=== PATIENT | male | born 1955 | race Two or more races ===

== ENCOUNTER 2016-09-21 07:19 | Emergency (ER) | payer MEDICARE ==
[~2016-09-21] VITALS: Ht 170.2 cm; Wt 73.0 kg
[~2016-09-21 07:19] MED LIST: ACET250T3 PO; CARB200T4 PO; LEVE500T22 PO
[2016-09-21 09:24] VITALS: BP 102/68
[2016-09-21] MEDS ORDERED: KETOROLAC TROMETH 60MG/2ML VIAL IM ONE (09:45)
== END 2016-09-21 14:53 | disposition home or self-care (01) ==
LOC: ER 07:20
DX: S22.32XA Fracture of one rib, left side, initial encounter for closed fracture (principal); R56.9 Unspecified convulsions; W01.0XXA Fall on same level from slipping, tripping and stumbling without subsequent striking against object, initial encounter; Y93.89 Activity, other specified; Y99.8 Other external cause status; Y92.89 Other specified places as the place of occurrence of the external cause; Z85.841 Personal history of malignant neoplasm of brain
CPT/HCPCS: 71111; 96372; 99284; J1885

== ENCOUNTER → 2017-08-18 | Outpatient (CLI) | payer MEDICARE, MEDICAID | END | disposition home or self-care (01) | LOC: LAB 09:37 | PROVIDERS: ATTEND Psychiatry & Neurology Neurology | DX: G40.89 Other seizures (principal) | CPT/HCPCS: 36415; 80156 ==

== ENCOUNTER 2018-12-24 11:05 | Inpatient (IN) | payer MEDICARE, MEDICAID ==
[~2018-12-24] VITALS: Ht 170.2 cm; Wt 84.1 kg
[2018-12-24] MEDS ORDERED: IOHEXOL 300 MG/ML 100ML BOTTLE IJ ONE ×2 (11:57→14:14)
[2018-12-24 12:26] LABS: Basophils # (auto) 0.1 uL; Basophils % (auto) 0.7 % (0.0-2.0); Eosinophils # (auto) 0 uL; Eosinophils % (auto) 0.1 % (0.0-7.0); Hematocrit 38.6 % (41.0-53.0); Hemoglobin 12.8 g/dL (13.5-17.5); Lymphocytes % (auto) 10.2 % (10.0-50.0); Mean Corpuscular Hemoglobin 32.7 pg (28.0-32.0); Mean Corpuscular Hgb Conc. 33.2 g/dL (32.0-36.0); Mean Corpuscular Volume 98.3 fL (80.0-100.0); Monocytes # (auto) 0.6 uL; Monocytes % (auto) 6.8 % (0.0-12.0); Neutrophils # (auto) 7.7 uL; Neutrophils % (auto) 82.2 % (37.0-80.0); Platelet Count (auto) 148 10^3/uL (140-450); Red Blood Cells 3.93 10^6/uL (4.5-5.90); White Blood Cell 9.4 10^3/uL (4.4-10.8)
[2018-12-24 13:09] LABS: Chloride 114 mmol/L (98-107); Potassium 3.9 mmol/L (3.5-5.1); Sodium 144 mmol/L (136-145)
[2018-12-24 13:29] LABS: Alanine Aminotransferase 21 U/L (16-61); Albumin 3.7 g/dL (3.4-5.0); Alkaline Phosphatase 199 U/L (45-117); Aspartate Aminotransferase 12 U/L (15-37); Bilirubin, Total 0.3 mg/dL (0.2-1.0); Calcium 9.2 mg/dL (8.5-10.1); Carbon Dioxide 19 mmol/L (21-32); GFR African American 73 mL/min; GFR Non-African American 61 mL/min; Magnesium 2.6 mg/dL (1.6-2.6); Total Protein 7.8 g/dL (6.4-8.2)
[2018-12-24 13:32] LABS: Anion Gap 11 (5-15)
[2018-12-24 13:33] LABS: Lactic Acid w/Reflex 2.6 mmol/L (0.4-2.0)
[2018-12-24 13:34] LABS: BUN/Creatinine Ratio 14.1; Blood Urea Nitrogen 18 mg/dL (7-18); Glucose 145 mg/dL (74-106)
[2018-12-24 14:55] LABS: Urine WBC None Seen /hpf (0 - 3)
[2018-12-24 15:22] LABS: Urine Bacteria NONE SEEN /hpf (None Seen); Urine Blood TRACE /uL (Negative); Urine Mucus FEW (None Seen); Urine Specific Gravity 1.031 (1.001-1.035)
[2018-12-24 16:12] LABS: INR 1.11 (0.9-1.15); Partial Thromboplastin Time 25.4 sec (23.64-32.05)
[2018-12-24] MEDS ORDERED: SODIUM CHLORIDE 0.9% 1,000 ML IV ONE (16:15)
[2018-12-24] MEDS ORDERED: NITROGLYCERIN 0.4 MG SL TAB SL PRN (19:15)
[2018-12-24] MEDS ORDERED: ONDANSETRON HCL 4 MG/2 ML VIAL IV PRN (19:15)
[2018-12-24] MEDS ORDERED: ACETAMINOPHEN 500 MG TAB PO PRN (19:15)
[2018-12-24] MEDS ORDERED: MORPHINE SULF INJ 2 MG/ML SYRINGE 1ML IV PRN (19:15)
[2018-12-24] MEDS ORDERED: LORazepam 2MG/ML-1ML VIAL IV PRN (20:00)
[2018-12-24] MEDS: DOCUSATE SOD 100 MG CAP PO SCH (22:18)
[2018-12-24] MEDS: LEVETIRACETAM 500 MG TAB PO SCH (22:19)
[2018-12-24] MEDS: acetaZOLAMIDE 250 MG TAB PO SCH (22:19)
[2018-12-24] MEDS: carBAMazepine 200 MG TAB PO SCH (22:19)
[2018-12-25 09:00] VITALS: BP 116/77
[2018-12-25] MEDS ORDERED: ENOXAPARIN SOD 40 MG/0.4 ML SYRINGE SC SCH (10:00)
[2018-12-25] MEDS: DOCUSATE SOD 100 MG CAP PO SCH ×2 (11:18→22:17)
[2018-12-25] MEDS: acetaZOLAMIDE 250 MG TAB PO SCH ×2 (11:18→22:17)
[2018-12-25] MEDS: FAMOTIDINE 20 MG TAB PO SCH (11:18)
[2018-12-25] MEDS: carBAMazepine 200 MG TAB PO SCH ×2 (11:19→22:17)
[2018-12-25] MEDS: ENOXAPARIN SOD 80 MG/0.8ML SYRINGE SC SCH ×2 (11:19→22:17)
[2018-12-25] MEDS: LEVETIRACETAM 500 MG TAB PO SCH ×2 (11:19→22:17)
[2018-12-25 13:00] VITALS: BP 120/74
[2018-12-25 18:00] VITALS: BP 124/75
--- NOTE | 2018-12-25 19:45 | NUR ---
Opening Shift Note Assumed care of patient, awake and alert noted slurring of speech, family at bedside. No S/S of distress/SOB. Instructed on POC and to call for assist PRN, patient and family verbalized understanding, sitter at bedside, will continue to monitor for changes Q1hr and PRN.
[2018-12-25 22:00] VITALS: BP 113/73
--- NOTE | 2018-12-25 22:05 | NUR ---
Turned patient to his side and every 2 hours, patient tolerated well
[2018-12-26 06:24] VITALS: BP 110/72
[2018-12-26 08:00] VITALS: BP 101/62
[2018-12-26 09:00] VITALS: BP 101/62
[2018-12-26] MEDS: ENOXAPARIN SOD 80 MG/0.8ML SYRINGE SC SCH ×2 (09:32→21:19)
[2018-12-26] MEDS: FAMOTIDINE 20 MG TAB PO SCH (09:32)
[2018-12-26] MEDS: acetaZOLAMIDE 250 MG TAB PO SCH ×2 (09:32→21:19)
[2018-12-26] MEDS: LEVETIRACETAM 500 MG TAB PO SCH ×2 (09:32→21:19)
[2018-12-26] MEDS: carBAMazepine 200 MG TAB PO SCH ×2 (09:32→21:19)
[2018-12-26] MEDS: DOCUSATE SOD 100 MG CAP PO SCH ×2 (09:32→21:19)
[2018-12-26 13:00] VITALS: BP 109/70
--- NOTE | 2018-12-26 13:52 | NUR ---
Respiratory note: PT PLACED ON RA ORDER FOR 02 QUALIFICATION ABG. PT WAS ON RA FOR 55 MINUTES WITH NO C/O SOB, NO DISTRESS NOTED. SPO2 MAINTAINED BETWEEN 97%-94% T/O TIME. DR. JOHNSON NOTIFIED AND RT ORDERED TO D/C ORDER.
--- NOTE | 2018-12-26 14:59 | NUR ---
assessment Patient is a 63 year old male who is alert and answering appropriately, but slow due to prior stroke. Prior to admission patient lived home with his daughter Cyndi who is also patients [facility] caregiver. Patient has a cane and fww for home use. Patients PCP is Dr Rowley. Patient was admitted for hip fracture. Per Cyndi patients daughter patient fell in the garage at home and fractured his hip. Per Cyndi she feels patient would do better at home post discharge rather than SNF placement. Per Cyndi we will discuss later after surgery. Patients post discharge needs to be determined prior to discharge. Cyndi verbalized understanding. Addendum: 12/26/18 at 1504 by Estrella BLAKE Amended: Links added.
[2018-12-26 16:50] VITALS: BP 116/71
--- NOTE | 2018-12-26 19:30 | NUR ---
Opening Shift Note Assumed care of patient, oriented, has slurred speech. No S/S of distress/SOB. Safety ensured, call light within reach, sitter at bedside, will continue to monitor for changes Q1hr and PRN.
[2018-12-26 22:00] VITALS: BP 109/69
[2018-12-26] MEDS: MORPHINE SULF INJ 2 MG/ML SYRINGE 1ML IV PRN (22:56)
[2018-12-27 06:10] VITALS: BP 127/82
--- NOTE | 2018-12-27 06:21 | NUR ---
Per sitter, urine output only of 200ml. Bladder scan done and scanned 104ml of retained urine
[2018-12-27 08:00] VITALS: BP 127/82
[2018-12-27 09:00] VITALS: BP 118/75
[2018-12-27] MEDS: acetaZOLAMIDE 250 MG TAB PO SCH ×2 (09:49→21:32)
[2018-12-27] MEDS: DOCUSATE SOD 100 MG CAP PO SCH ×2 (09:49→21:31)
[2018-12-27] MEDS: LEVETIRACETAM 500 MG TAB PO SCH ×2 (09:50→21:31)
[2018-12-27] MEDS: FAMOTIDINE 20 MG TAB PO SCH (09:50)
[2018-12-27] MEDS: ENOXAPARIN SOD 80 MG/0.8ML SYRINGE SC SCH ×2 (09:51→21:31)
[2018-12-27] MEDS: carBAMazepine 200 MG TAB PO SCH ×2 (09:51→21:32)
[2018-12-27 13:00] VITALS: BP 125/76
--- NOTE | 2018-12-27 13:57 | NUR ---
Nutrition Assessment Notes please see attached link for complete assessment Est. Needs BW [id number] kcal (23-25kcal/kgBW), 82-90 gms pro (1.0-1.1 gms/kgBW). Will continue to monitor pertinent labs and reassess nutrient need prn. Addendum: 12/27/18 at [address] Amended: Links added.
[2018-12-27 17:00] VITALS: BP 120/74
--- NOTE | 2018-12-27 19:30 | NUR ---
Opening Shift Note Assumed care of patient, oriented, has slurred speech, cooperative to care. No S/S of distress/SOB. Sitter at bedside, call light within reach, bed in lock position, will continue to monitor for changes Q1hr and PRN.
--- NOTE | 2018-12-27 20:40 | NUR ---
Discussed on POC, patient aware of surgery tomorrow. Noted consents for Anesthesia and Blood transfusion signed by daughter. Instructed to be NPO after MN, patient verbalized understanding, will continue care
[2018-12-27] MEDS: MORPHINE SULF INJ 2 MG/ML SYRINGE 1ML IV PRN (21:46)
[2018-12-27 22:25] VITALS: BP 117/74
[2018-12-28 02:36] LABS: Urine Bacteria FEW /hpf (None Seen); Urine Blood Negative /uL (Negative); Urine Specific Gravity 1.031 (1.001-1.035); Urine WBC 21 /hpf (0 - 3)
--- NOTE | 2018-12-28 04:55 | NUR ---
CHG wipes done, complete linen changed, maintained on NPO
[2018-12-28 05:00] VITALS: BP 133/84
--- NOTE | 2018-12-28 06:50 | NUR ---
Called and spoke to patient's daughter Cyndi
--- NOTE | 2018-12-28 07:00 | NUR ---
Brought patient down to OR, patient alert/oriented and not in distress. Endorsed to KO Rosa
[2018-12-28] MEDS ORDERED: ceFAZolin 1GM/50ML 100 ML IV ONE (07:03)
--- NOTE | 2018-12-28 07:25 | NUR ---
Spoke to Dr. Martínez re: consult. Per MD to come back later in the afternoon after patient's surgery. Endorsed to OK Forbes
[2018-12-28] MEDS ORDERED: ceFAZolin 1GM 2 GM in D5W 5% 100 ML IV ONE (08:45)
--- NOTE | 2018-12-28 09:00 | NUR ---
Opening Shift Note Pt. returned from OR. Assumed care, awake and alert, resting in bed with family at bedside. No S/S of distress/SOB, no pain noted or reported at this time. Respirations are even and unlabored. Updated on POC and instructed to call for assist as needed, pt. verbalized understanding. Bed locked in lowest position, side rails up x2, call light within reach. Will continue to monitor for changes Q1hr and PRN.
--- NOTE | 2018-12-28 09:00 | NUR ---
Pt. back from OR, no procedure performed. Needs cardiac clearance.
[2018-12-28 10:00] VITALS: BP 125/78
[2018-12-28] MEDS: DOCUSATE SOD 100 MG CAP PO SCH ×2 (10:00→22:00)
[2018-12-28] MEDS: ENOXAPARIN SOD 80 MG/0.8ML SYRINGE SC SCH (10:00)
[2018-12-28] MEDS: LEVETIRACETAM 500 MG TAB PO SCH ×2 (10:46→22:03)
[2018-12-28] MEDS: acetaZOLAMIDE 250 MG TAB PO SCH ×2 (10:46→22:03)
[2018-12-28] MEDS: carBAMazepine 200 MG TAB PO SCH ×2 (10:46→22:03)
[2018-12-28] MEDS: FAMOTIDINE 20 MG TAB PO SCH (10:46)
[2018-12-28 13:13] VITALS: BP 120/73
[2018-12-28 15:22] LABS: Basophils # (auto) 0.1 uL; Basophils % (auto) 1.1 % (0.0-2.0); Eosinophils # (auto) 0.1 uL; Eosinophils % (auto) 2.5 % (0.0-7.0); Hematocrit 29.4 % (41.0-53.0); Hemoglobin 9.8 g/dL (13.5-17.5); Lymphocytes # (auto) 0.9 uL; Lymphocytes % (auto) 18.3 % (10.0-50.0); Magnesium 2.2 mg/dL (1.6-2.6); Mean Corpuscular Hgb Conc. 33.3 g/dL (32.0-36.0); Mean Corpuscular Volume 99.2 fL (80.0-100.0); Monocytes # (auto) 0.6 uL; Monocytes % (auto) 11.4 % (0.0-12.0); Neutrophils # (auto) 3.4 uL; Neutrophils % (auto) 66.7 % (37.0-80.0); Platelet Count (auto) 114 10^3/uL (140-450); Potassium 3.4 mmol/L (3.5-5.1); Red Blood Cells 2.97 10^6/uL (4.5-5.90); Red Cell Distribution Width 13.3 % (11.8-14.3)
--- NOTE | 2018-12-28 15:29 | NUR ---
Dr. Martínez cleared pt. for ortho surgery. Paged Dr. Manning to make him aware of clearance.
[2018-12-28 17:00] VITALS: BP 107/78
[2018-12-28 17:00] LABS: INR 0.97 (0.9-1.15); Partial Thromboplastin Time 27.9 sec (23.64-32.05)
[2018-12-28] MEDS ORDERED: ENOXAPARIN SOD 80 MG/0.8ML SYRINGE SC ONE (20:30)
[2018-12-28 22:00] VITALS: BP 123/75
[2018-12-28] MEDS ORDERED: APIXABAN 5 MG TAB PO SCH (22:00)
[2018-12-28] MEDS: HYDROcodone-ACET 5/325MG TAB PO PRN (22:05)
--- NOTE | 2018-12-29 | NUR ---
PATIENT PLACED NPO FOR SURGERY IN AM.
[2018-12-29 05:00] VITALS: BP 108/72
--- NOTE | 2018-12-29 05:48 | NUR ---
PATIENT REMAINS NPO. CHG BATH GIVEN TO PATIENT.
--- NOTE | 2018-12-29 07:05 | NUR ---
Opening Shift Note Assumed care of patient, awake and alert, resting in bed. No S/S of distress or SOB, no pain noted or reported at this time. Respirations are even and unlabored. Updated pt. on POC and instructed to call for assistance as needed, Pt. verbalized understanding. Bed locked in lowest position, side rails up x2, call light within reach, sitter at bedside for safety. Will continue to monitor q1hr and PRN.
--- NOTE | 2018-12-29 08:40 | NUR ---
Pt. taken to OR for procedure.
[2018-12-29 09:00] VITALS: BP_SYST 104; BP_SYST 130; BP_DIAS 70; BP_DIAS 73
[2018-12-29] MEDS ORDERED: ceFAZolin 1GM/50ML 50 ML IV ONE (09:00)
[2018-12-29] MEDS ORDERED: MIDAZOLAM HCL 1MG/1ML-2 ML VIAL ONE (09:38)
[2018-12-29] MEDS ORDERED: fentaNYL CITRATE 100 MCG/2 ML VL ONE (09:38)
[2018-12-29] MEDS: acetaZOLAMIDE 250 MG TAB PO SCH ×2 (10:00→22:15)
[2018-12-29] MEDS: FAMOTIDINE 20 MG TAB PO SCH (10:00)
[2018-12-29] MEDS: carBAMazepine 200 MG TAB PO SCH ×2 (10:00→22:10)
[2018-12-29] MEDS: DOCUSATE SOD 100 MG CAP PO SCH ×2 (10:00→22:11)
[2018-12-29] MEDS: LEVETIRACETAM 500 MG TAB PO SCH ×2 (10:00→22:11)
[2018-12-29] MEDS ORDERED: PROPOFOL 10 MG/ML 20 ML IV ONE (10:27)
--- NOTE | 2018-12-29 12:05 | NUR ---
Pt. returned from OR. Family at bedside. No S/S of distress or SOB. Dressing clean dry and intact.
[2018-12-29 13:32] VITALS: BP 118/72
[2018-12-29] MEDS: ceFAZolin 1GM/50ML 50 ML IV SCH ×2 (13:43→22:09)
[2018-12-29 17:29] VITALS: BP 121/70
[2018-12-29] MEDS: HYDROcodone-ACET 5/325MG TAB PO PRN (17:34)
--- NOTE | 2018-12-29 19:30 | NUR ---
Opening Shift Note Assumed care of patient, awake and alert, resting in bed. No S/S of distress or SOB, no pain noted or reported at this time. Respirations are even and unlabored. Updated pt. on POC and instructed to call for assistance as needed, Pt. verbalized understanding. Bed locked in lowest position, side rails up x2, call light within reach, sitter at bedside for safety. Dressing on right hip has minimal drainage and drainage was circled for future reference.
[2018-12-29 22:00] VITALS: BP 113/64
[2018-12-29] MEDS: APIXABAN 5 MG TAB PO SCH (22:12)
[2018-12-30] MEDS: MORPHINE SULF INJ 2 MG/ML SYRINGE 1ML IV PRN ×2 (04:06→10:20)
[2018-12-30 05:00] VITALS: BP 112/68
[2018-12-30] MEDS: ceFAZolin 1GM/50ML 50 ML IV SCH ×3 (05:28→21:49)
[2018-12-30 07:06] LABS: Hemoglobin 8.3 g/dL (13.5-17.5)
[2018-12-30 07:13] LABS: Hematocrit 24.5 % (41.0-53.0)
--- NOTE | 2018-12-30 07:25 | NUR ---
Opening Shift Note Assumed care of patient, resting with eyes closed, awoken by name. No S/S of distress or SOB, no pain noted or reported at this time. Respirations are even and unlabored. Updated pt. on POC and instructed to call for assistance as needed, Pt. verbalized understanding. Bed locked in lowest position, side rails up x2, call light within reach, sitter at bedside for safety. Will continue to monitor q1hr and PRN.
[2018-12-30 09:00] VITALS: BP 111/79
[2018-12-30] MEDS: LEVETIRACETAM 500 MG TAB PO SCH ×2 (09:22→21:47)
[2018-12-30] MEDS: acetaZOLAMIDE 250 MG TAB PO SCH ×2 (09:22→21:48)
[2018-12-30] MEDS: DOCUSATE SOD 100 MG CAP PO SCH ×2 (09:22→21:48)
[2018-12-30] MEDS: FAMOTIDINE 20 MG TAB PO SCH (09:22)
[2018-12-30] MEDS: APIXABAN 5 MG TAB PO SCH ×2 (09:22→21:47)
[2018-12-30] MEDS: carBAMazepine 200 MG TAB PO SCH ×2 (09:23→21:48)
[2018-12-30] MEDS ORDERED: ENOXAPARIN SOD 40 MG/0.4 ML SYRINGE SC SCH (10:00)
[2018-12-30 13:00] VITALS: BP 101/61
--- NOTE | 2018-12-30 19:30 | NUR ---
Opening Shift Note Assumed care of patient, awake and alert, resting in bed. No S/S of distress or SOB, no pain noted or reported at this time. Respirations are even and unlabored. Updated pt. on POC and instructed to call for assistance as needed, Pt. verbalized understanding. Bed locked in lowest position, side rails up x2, call light within reach, sitter at bedside for safety. Dressing on right hip has no change from circled drainage.
[2018-12-30 22:00] VITALS: BP 122/68
[2018-12-31 05:00] VITALS: BP 114/65
[2018-12-31 05:13] LABS: Eosinophils # (auto) 0.2 uL; Eosinophils % (auto) 2.5 % (0.0-7.0); Hemoglobin 8.2 g/dL (13.5-17.5); Lymphocytes # (auto) 1.4 uL; Neutrophils # (auto) 4.4 uL; Red Blood Cells 2.46 10^6/uL (4.5-5.90); White Blood Cell 6.9 10^3/uL (4.4-10.8)
[2018-12-31 05:15] LABS: Basophils # (auto) 0.1 uL; Basophils % (auto) 0.9 % (0.0-2.0); Hematocrit 24.4 % (41.0-53.0); Lymphocytes % (auto) 19.6 % (10.0-50.0); Mean Corpuscular Hemoglobin 33.5 pg (28.0-32.0); Mean Corpuscular Hgb Conc. 33.7 g/dL (32.0-36.0); Mean Corpuscular Volume 99.4 fL (80.0-100.0); Monocytes # (auto) 0.9 uL; Platelet Count (auto) 136 10^3/uL (140-450); Red Cell Distribution Width 13.6 % (11.8-14.3)
[2018-12-31] MEDS: ceFAZolin 1GM/50ML 50 ML IV SCH (05:33)
[2018-12-31 06:33] LABS: Chloride 115 mmol/L (98-107); Potassium 3.4 mmol/L (3.5-5.1); Sodium 143 mmol/L (136-145)
[2018-12-31 06:37] LABS: Anion Gap 9 (5-15); BUN/Creatinine Ratio 29.9; Blood Urea Nitrogen 20 mg/dL (7-18); Calcium 8.4 mg/dL (8.5-10.1); Carbon Dioxide 19 mmol/L (21-32); GFR African American 155 mL/min; GFR Non-African American 128 mL/min; Glucose 105 mg/dL (74-106)
--- NOTE | 2018-12-31 07:30 | NUR ---
Opening Shift Note Received report from Francheska CONNELL. Assumed care of patient, awake and more alert today. No S/S of distress/SOB or pain. Noted sitter Татьяна at bedside. Noted dry & intact dressing on right hip. Instructed on POC and to call for assist PRN, will continue to monitor for changes Q1hr and PRN.
[2018-12-31] MEDS: DOCUSATE SOD 100 MG CAP PO SCH ×2 (09:21→22:00)
[2018-12-31] MEDS: acetaZOLAMIDE 250 MG TAB PO SCH ×2 (09:21→21:59)
[2018-12-31] MEDS: LEVETIRACETAM 500 MG TAB PO SCH ×2 (09:21→21:59)
[2018-12-31] MEDS: APIXABAN 5 MG TAB PO SCH ×2 (09:22→21:59)
[2018-12-31] MEDS: FAMOTIDINE 20 MG TAB PO SCH (09:22)
[2018-12-31] MEDS: carBAMazepine 200 MG TAB PO SCH ×2 (09:22→21:59)
[2018-12-31 09:24] VITALS: BP 117/66
--- NOTE | 2018-12-31 11:45 | NUR ---
Dr. Garber at bedside. Received verbal order to let the physical therapist see the patient again to walk. Arcadio Palomino, will wait for call back. Addendum: 12/31/18 at 1159 by ANTONIO ANTHONY RN RECEIVED NEW VERBAL ORDERS FOR SOCIAL SERVICE, SEE NEW ORDERS.
--- NOTE | 2018-12-31 12:00 | NUR ---
SPOKE WITH Yesenia FRANCO, MADE AWARE THAT IS REQUESTING TO HAVE PATIENT WALKS TODAY.
[2018-12-31] MEDS ORDERED: POTASSIUM CHL 20 Meq TABLET PO ONE (13:00)
[2018-12-31 14:00] VITALS: BP 107/66
--- NOTE | 2018-12-31 14:00 | NUR ---
Wound Care/ Incisional Care on right hip Wound care provided per MD order. Patient tolerated well and verbalized dressing care instructions.
--- NOTE | 2018-12-31 14:13 | NUR ---
Nutrition Follow-up Notes Wt.: 80.9 kg as of yesterday. Pt's asleep, no immediate family member at bedside except for sitter when rounded when rounded this morning. Pt's s/p Intramedullary nailing of the right hip, (12/29/28), no signs of distress noted earlier, currently on Regular diet with adequate PO intake aeb 85% ave. consumed meals (x6) in last 2.5 days. Est. Needs BW [id number] kcal (23-25kcal/kgBW), 82-90 gms pro (1.0-1.1 gms/kgBW). Will continue to monitor pertinent labs and reassess nutrient need prn. Labs: Cl 115 H, K 3.4 L, BUN 19 H, BUN 20 H, Cr 0.67 L, Ca 8.4 L Skin: Lexx scale 18, mod risk, pt's right hip incision dry and intact per test deck supervisor. GI: Pt had 2x BM this morning per test deck supervisor. PES: Altered nutrition related lab values r/t acute/chronic medical condition aeb hyperglycemia, elev. renal labs Will continue to monitor PO intake, skin status, pertinent labs and weight trend. F/u in 3 to 5 days. Rec.: 1.) Continue close supervision during meals. 2.) Refer pt to CDE/RD for further nutrition education and weight monitoring upon discharge. 3.) Continue current plan of care.
[2018-12-31 17:13] VITALS: BP 101/69
--- NOTE | 2018-12-31 19:40 | NUR ---
RECEIVED PATIENT FROM DAY SHIFT RN. PATIENT RESTING IN BED. NO S/S OF DISTRESS NOTED. DENIED PAIN FOR NOW. DRESSING ON RIGHT HIP C/D/I. REPOSITIONED PATIENT. PATIENT COULD ANSWER BUT SLOW AND SLURRED. REORIENTED PATIENT SITUATION. POC INSTRUCTED AND ENCOURAGED PATIENT TO CALL FOR FINE UNHAIRER IF NEEDED. BED IN LOWEST POSITION WITH SIDE RAILS UP X 2. CALL NIELSON WITHIN REACH. ALARM ON. SITTER AT BEDSIDE FOR SAFETY. CONTINUE TO MONITOR FOR CHANGES Q1H AND PRN.
[2018-12-31 22:00] VITALS: BP 111/68
--- NOTE | 2018-12-31 22:00 | NUR ---
ORAL MEDICATION GIVEN ORDERED. PATIENT SWALLOWED WELL NO S/S OF ASPIRATION NOTED. CONTINUE TO MONITOR.
--- NOTE | 2019-01-01 01:11 | NUR ---
REPOSITIONED PATIENT. PATIENT TOLERATED WELL. BED IN LOWEST POSITION. ALARM ON. CALL NIELSON WITHIN REACH. SITTER AT BEDSIDE FOR SAFETY. CONTINUE TO MONITOR.
--- NOTE | 2019-01-01 04:50 | NUR ---
CLEANED PATIENT FOR ACCIDENT. PARTIAL LINEN CHANGED. PATIENT TOLERATED WELL. REPOSITIONED PATIENT TO COMFORT. CONTINUE TO MONITOR.
[2019-01-01 05:00] VITALS: BP 107/71
--- NOTE | 2019-01-01 07:20 | NUR ---
Opening Shift Note Assumed care of patient, patient asleep. No S/S of distress/SOB or pain. Sitter at bedside, will continue to monitor for changes Q1hr and PRN.
[2019-01-01 08:00] VITALS: BP 106/63
[2019-01-01 08:34] VITALS: BP 106/63
[2019-01-01] MEDS: DOCUSATE SOD 100 MG CAP PO SCH (09:00)
[2019-01-01] MEDS: acetaZOLAMIDE 250 MG TAB PO SCH (09:00)
[2019-01-01] MEDS: FAMOTIDINE 20 MG TAB PO SCH (09:01)
[2019-01-01] MEDS: APIXABAN 5 MG TAB PO SCH (09:01)
[2019-01-01] MEDS: LEVETIRACETAM 500 MG TAB PO SCH (09:01)
[2019-01-01] MEDS: carBAMazepine 200 MG TAB PO SCH (09:01)
--- NOTE | 2019-01-01 09:39 | NUR ---
re-assessment Per consult Home health safety and home health PT. Patients daughter has been read a list of medicare providers. Per Cyndi Mercado Jaren to provide service. order has been faxed to [facility] ph:[phone] fx: [phone]. Per Alexx Jess [facility]man has accepted and will start service 24-48 hrs post d/c. Please notify once pt is discharged. Pt and Cyndi agrees to discharge plan with [facility]. Addendum: 01/01/19 at 0941 by Estrella BLAKE Amended: Links added.
[2019-01-01] MEDS: MORPHINE SULF INJ 2 MG/ML SYRINGE 1ML IV PRN (10:33)
[2019-01-01 10:46] LABS: Hemoglobin 8.3 g/dL (13.5-17.5)
[2019-01-01 10:47] LABS: Hematocrit 25.2 % (41.0-53.0)
[2019-01-01 13:20] VITALS: BP 111/64
--- NOTE | 2019-01-01 17:07 | NUR ---
Per SS consult for home health and home walker. Information and choice letter was given to Pt. Pt requested for daughter Cyndi to decide home health. Per Daughter Cyndi she had no preference. Pt and daughter agrees and understand d/c plan. Contacted [facility] Ph: ( [phone]) Fax: ( [phone]) faxed medical records. Per Terrie from [facility] Pt has been accepted and service to start within 48 hours upon d/c. Pt daughter Cyndi stated she has a [place] walker at home. Pt is good to go home I will faxed [facility] medical records and if Pt insurance approves walker it will be sent home. Informed KO Grace. Addendum: 01/01/19 at 1716 by DOV BLAKE Amended: Links added. Addendum: 01/03/19 at 0827 by DOV BLAKE Contacted [facility] Ph: ) per Kim chahal walker has been approved by insurance and will be sent to home.
[2019-01-01 17:13] VITALS: BP 107/73
--- NOTE | 2019-01-01 19:24 | NUR ---
RECEIVED PATIENT FROM DAY SHIFT RN. PATIENT SITTING IN BED AND HAVING DINNER. FAMILY FEEDING HIM. NO S/S OF ASPIRATION AND PAIN NOTED. PATIENT IS READY TO BE DISCHARGED AFTER DINNER. BED IN LOWEST POSITION WITH SIDE RAILS UP X 2. CALL NIELSON WITHIN REACH. ALARM ON. SITTER AT BEDSIDE FOR SAFETY. CONTINUE TO MONITOR.
--- NOTE | 2019-01-01 21:00 | NUR ---
Discharge instructions given as ordered BY DAY SHIFT RN. Encourage to follow up with PMD as instructed. All questions and concerns addressed. Patient AND FAMILY verbalized understanding. Medication reconciliation form completed and copy given to patient. IV removed with catheter intact, pressure dressing applied. Telemetry unit returned to ICU. Patient taken to vehicle via wheelchair with all personal belongings, accompanied by staff and family member. No distress noted at time of departure.
== END 2019-01-01 21:00 | disposition home health service (06) | DRG 481 ==
LOC: ER 11:11 → TELE 11:12 → TELE-WESTW 12-25 09:20
PROVIDERS: ADMIT Nurse Practitioner Acute Care; ATTEND Internal Medicine
PROC: 0QS636Z Reposition Right Upper Femur with Intramedullary Internal Fixation Device, Percutaneous Approach (ICD-10-PCS; principal; 2018-12-24)
DX: S72.141A Displaced intertrochanteric fracture of right femur, initial encounter for closed fracture (principal); S42.301A Unspecified fracture of shaft of humerus, right arm, initial encounter for closed fracture; R47.01 Aphasia; G81.91 Hemiplegia, unspecified affecting right dominant side; I82.431 Acute embolism and thrombosis of right popliteal vein; R41.0 Disorientation, unspecified; G40.909 Epilepsy, unspecified, not intractable, without status epilepticus; N20.0 Calculus of kidney; D15.1 Benign neoplasm of heart; R29.6 Repeated falls; D64.9 Anemia, unspecified; I10 Essential (primary) hypertension; Z98.2 Presence of cerebrospinal fluid drainage device; Z96.642 Presence of left artificial hip joint; Z85.841 Personal history of malignant neoplasm of brain; Z79.899 Other long term (current) drug therapy; W18.39XA Other fall on same level, initial encounter; Y93.89 Activity, other specified; Y92.89 Other specified places as the place of occurrence of the external cause; Y99.8 Other external cause status; M81.0 Age-related osteoporosis without current pathological fracture
CPT/HCPCS: 36415; 51702; 70450; 71045; 71260; 72125; 73060; 73502; 74177; 76001; 78582; 80048; 80053; 80156; 81001; 83605; 83735; 83880; 84484; 85014; 85018; 85025; 85379; 85610; 85730; 86850; 86900; 86901; 87040; 93005; 93306; 93970; 96361; 96374; A4565; G0378; J0690; J2250; J2405; J2704; J7060

== ENCOUNTER 2019-07-30 13:08 | Inpatient (IN) | payer MEDICARE, MEDICAID ==
[~2019-07-30] VITALS: Ht 172.7 cm; Wt 83.2 kg
[2019-07-30] MEDS ORDERED: SODIUM CHLORIDE 0.9% 500 ML IVB ONE (13:16)
[2019-07-30 13:41] LABS: Basophils # (auto) 0 uL; Basophils % (auto) 0.6 % (0.0-2.0); Eosinophils # (auto) 0 uL; Eosinophils % (auto) 0.2 % (0.0-7.0); Hematocrit 39.5 % (41.0-53.0); Hemoglobin 12.9 g/dL (13.5-17.5); Lymphocytes % (auto) 25.7 % (10.0-50.0); Mean Corpuscular Hemoglobin 32.6 pg (28.0-32.0); Mean Corpuscular Hgb Conc. 32.7 g/dL (32.0-36.0); Mean Corpuscular Volume 99.8 fL (80.0-100.0); Monocytes # (auto) 0.4 uL; Monocytes % (auto) 11.2 % (0.0-12.0); Neutrophils # (auto) 2.3 uL; Neutrophils % (auto) 62.3 % (37.0-80.0); Nucleated Red Blood Cells % 0.2 %; Platelet Count (auto) 95 10^3/uL (140-450); Red Blood Cells 3.95 10^6/uL (4.5-5.90); Red Cell Distribution Width 14.1 % (11.8-14.3); White Blood Cell 3.7 10^3/uL (4.4-10.8)
[2019-07-30 14:00] LABS: Albumin 3.4 g/dL (3.4-5.0); Anion Gap 7 (5-15); Blood Alcohol < 3.0 mg/dL (0-5); Calcium 8.7 mg/dL (8.5-10.1); Carbon Dioxide 19 mmol/L (21-32); Chloride 115 mmol/L (98-107); Glucose 146 mg/dL (74-106); Magnesium 2.2 mg/dL (1.6-2.6); Potassium 3.3 mmol/L (3.5-5.1); Sodium 141 mmol/L (136-145)
[2019-07-30 14:03] LABS: Alanine Aminotransferase 53 U/L (16-61); Alkaline Phosphatase 137 U/L (45-117); Aspartate Aminotransferase 61 U/L (15-37); Bilirubin, Total 0.2 mg/dL (0.2-1.0); GFR African American 76 mL/min; GFR Non-African American 63 mL/min; Total Protein 7.3 g/dL (6.4-8.2)
[2019-07-30 14:55] LABS: BUN/Creatinine Ratio 16.9; Blood Urea Nitrogen 21 mg/dL (7-18)
[2019-07-30 19:11] LABS: Alcohol, Urine < 3.0 mg/dL (0-5); Amphetamine Screen, Urine NEGATIVE (NEGATIVE); Barbiturate Scree,Urine NEGATIVE (NEGATIVE); Benzodiazephine Screen, Urine NEGATIVE (NEGATIVE); Cannabinoid Screen, Urine NEGATIVE (NEGATIVE); Cocaine Screen, Urine NEGATIVE (NEGATIVE); Opiate Scree,Urine NEGATIVE (NEGATIVE); Phencyclidine Screen, Urine NEGATIVE (NEGATIVE)
[2019-07-30] MEDS ORDERED: MORPHINE SULF INJ 2 MG/ML SYRINGE 1ML IV PRN (19:30)
[2019-07-30] MEDS ORDERED: NITROGLYCERIN 0.4 MG SL TAB SL PRN (19:30)
[2019-07-30] MEDS: SOD CHL 0.9%/ KCL 20MEQ 1,000 ML IV SCH (20:11)
[2019-07-30 22:00] VITALS: BP 121/70
[2019-07-30] MEDS: levETIRAcetam 500 MG TAB PO SCH (22:16)
[2019-07-30] MEDS: carBAMazepine 200 MG TAB PO SCH (22:16)
[2019-07-31 05:00] VITALS: BP 116/76
[2019-07-31 06:29] LABS: Basophils # (auto) 0 uL; Basophils % (auto) 0.8 % (0.0-2.0); Eosinophils # (auto) 0 uL; Eosinophils % (auto) 0.6 % (0.0-7.0); Hematocrit 34.5 % (41.0-53.0); Hemoglobin 11.5 g/dL (13.5-17.5); Lymphocytes # (auto) 1.3 uL; Lymphocytes % (auto) 52.4 % (10.0-50.0); Mean Corpuscular Hemoglobin 33.2 pg (28.0-32.0); Mean Corpuscular Hgb Conc. 33.4 g/dL (32.0-36.0); Mean Corpuscular Volume 99.5 fL (80.0-100.0); Monocytes # (auto) 0.3 uL; Monocytes % (auto) 13.5 % (0.0-12.0); Neutrophils # (auto) 0.8 uL; Neutrophils % (auto) 32.7 % (37.0-80.0); Nucleated Red Blood Cells % 0.1 %; Platelet Count (auto) 78 10^3/uL (140-450); Red Blood Cells 3.46 10^6/uL (4.5-5.90); White Blood Cell 2.5 10^3/uL (4.4-10.8)
[2019-07-31 06:57] LABS: Potassium 3.4 mmol/L (3.5-5.1)
[2019-07-31] MEDS: SOD CHL 0.9%/ KCL 20MEQ 1,000 ML IV SCH ×2 (07:00→07:07)
[2019-07-31 07:02] LABS: BUN/Creatinine Ratio 20.8; Calcium 8.1 mg/dL (8.5-10.1)
[2019-07-31 09:00] VITALS: BP 121/77
[2019-07-31] MEDS: levETIRAcetam 500 MG TAB PO SCH ×3 (09:57→22:25)
[2019-07-31] MEDS: carBAMazepine 200 MG TAB PO SCH ×2 (09:57→22:11)
[2019-07-31] MEDS ORDERED: POTASSIUM EFFERVESENT TAB 25 MEQ PO ONE (12:15)
[2019-07-31] MEDS ORDERED: IOHEXOL 350 MG/ML 100ML IJ ONE (12:43)
[2019-07-31 13:00] VITALS: BP_SYST 105; BP_SYST 170; BP_DIAS 76; BP_DIAS 93
[2019-07-31 13:14] LABS: INR 1.05 (0.9-1.15)
[2019-07-31 13:35] LABS: Urine WBC None Seen /hpf (0 - 3)
[2019-07-31 13:51] LABS: Urine Bacteria NONE SEEN /hpf (None Seen); Urine Blood Negative /uL (Negative); Urine Specific Gravity 1.046 (1.001-1.035)
[2019-07-31 17:00] VITALS: BP 118/69
[2019-07-31] MEDS ORDERED: LORazepam 2MG/ML-1ML VIAL IV PRN (21:00)
[2019-07-31] MEDS ORDERED: carBAMazepine 200 MG TAB PO SCH (21:00)
[2019-07-31 21:57] VITALS: BP 124/74
[2019-07-31] MEDS: ENOXAPARIN SOD 80 MG/0.8ML SYRINGE SC SCH (22:10)
[2019-07-31] MEDS: acetaZOLAMIDE 250 MG TAB PO SCH (22:17)
[2019-08-01] MEDS: SOD CHL 0.9%/ KCL 20MEQ 1,000 ML IV SCH ×3 (01:30→22:08)
[2019-08-01 04:45] LABS: Basophils # (auto) 0 uL; Basophils % (auto) 0.8 % (0.0-2.0); Eosinophils # (auto) 0 uL; Eosinophils % (auto) 1.4 % (0.0-7.0); Hematocrit 33.3 % (41.0-53.0); Hemoglobin 11.2 g/dL (13.5-17.5); Lymphocytes # (auto) 1.2 uL; Lymphocytes % (auto) 43.7 % (10.0-50.0); Mean Corpuscular Hemoglobin 32.7 pg (28.0-32.0); Mean Corpuscular Hgb Conc. 33.6 g/dL (32.0-36.0); Mean Corpuscular Volume 97.3 fL (80.0-100.0); Monocytes # (auto) 0.3 uL; Monocytes % (auto) 11.6 % (0.0-12.0); Neutrophils # (auto) 1.2 uL; Neutrophils % (auto) 42.5 % (37.0-80.0); Nucleated Red Blood Cells % 0.2 %; Platelet Count (auto) 82 10^3/uL (140-450); Red Blood Cells 3.42 10^6/uL (4.5-5.90); Red Cell Distribution Width 13.7 % (11.8-14.3); White Blood Cell 2.8 10^3/uL (4.4-10.8)
[2019-08-01 05:00] VITALS: BP_SYST 130; BP_SYST 135; BP_DIAS 78; BP_DIAS 86
[2019-08-01 05:09] LABS: Calcium 8.2 mg/dL (8.5-10.1); Potassium 3.7 mmol/L (3.5-5.1)
[2019-08-01] MEDS: carBAMazepine 200 MG TAB PO SCH ×3 (05:18→22:07)
[2019-08-01 08:00] VITALS: BP 126/75
[2019-08-01] MEDS: levETIRAcetam 500 MG TAB PO SCH ×2 (10:01→22:07)
[2019-08-01] MEDS: acetaZOLAMIDE 250 MG TAB PO SCH ×2 (10:02→22:07)
[2019-08-01] MEDS: ENOXAPARIN SOD 80 MG/0.8ML SYRINGE SC SCH ×2 (10:03→22:08)
[2019-08-01 12:00] VITALS: BP 105/58
[2019-08-01 17:00] VITALS: BP 102/64
[2019-08-01 22:00] VITALS: BP 128/78
[2019-08-02 06:20] LABS: Basophils # (auto) 0 uL; Basophils % (auto) 0.7 % (0.0-2.0); Eosinophils # (auto) 0 uL; Eosinophils % (auto) 1.8 % (0.0-7.0); Hematocrit 32.4 % (41.0-53.0); Hemoglobin 11.1 g/dL (13.5-17.5); Lymphocytes # (auto) 1.2 uL; Lymphocytes % (auto) 48.7 % (10.0-50.0); Mean Corpuscular Hemoglobin 33.2 pg (28.0-32.0); Mean Corpuscular Hgb Conc. 34.2 g/dL (32.0-36.0); Monocytes # (auto) 0.3 uL; Monocytes % (auto) 11.9 % (0.0-12.0); Neutrophils # (auto) 0.9 uL; Neutrophils % (auto) 36.9 % (37.0-80.0); Nucleated Red Blood Cells % 0.1 %; Platelet Count (auto) 87 10^3/uL (140-450); Red Blood Cells 3.34 10^6/uL (4.5-5.90); Red Cell Distribution Width 13.8 % (11.8-14.3); White Blood Cell 2.4 10^3/uL (4.4-10.8)
[2019-08-02 06:30] LABS: BUN/Creatinine Ratio 11.4; Potassium 3.8 mmol/L (3.5-5.1)
[2019-08-02] MEDS: carBAMazepine 200 MG TAB PO SCH ×3 (06:31→22:01)
[2019-08-02 08:53] VITALS: BP 128/90
[2019-08-02] MEDS: acetaZOLAMIDE 250 MG TAB PO SCH ×2 (09:10→22:02)
[2019-08-02] MEDS: levETIRAcetam 500 MG TAB PO SCH ×2 (09:10→22:02)
[2019-08-02] MEDS: SOD CHL 0.9%/ KCL 20MEQ 1,000 ML IV SCH ×2 (09:11→17:30)
[2019-08-02] MEDS: ENOXAPARIN SOD 80 MG/0.8ML SYRINGE SC SCH ×2 (09:14→22:02)
[2019-08-02] MEDS ORDERED: PNEUMOCOCCAL VACC POLYS 25 MCG/0.5 ML VIAL IM ONE (10:45)
[2019-08-02] MEDS ORDERED: INFLUENZA QUAD 2019-2020 0.5ml SYRG IM ONE (10:45)
[2019-08-02 12:39] VITALS: BP 119/76
[2019-08-02] MEDS ORDERED: CALCIUM CHL 100MG/ML 1,000 MG in D5W 5% 100 ML IV ONE (15:15)
[2019-08-02 17:00] VITALS: BP 123/76
[2019-08-02] MEDS: FUROSEMIDE 20 MG/2 ML VIAL IV SCH (18:14)
[2019-08-02 21:36] VITALS: BP 114/69
[2019-08-03] MEDS: SOD CHL 0.9%/ KCL 20MEQ 1,000 ML IV SCH ×3 (04:00→16:33)
[2019-08-03 05:08] VITALS: BP 104/72
[2019-08-03] MEDS: FUROSEMIDE 20 MG/2 ML VIAL IV SCH ×2 (05:57→18:00)
[2019-08-03] MEDS: carBAMazepine 200 MG TAB PO SCH ×3 (05:58→21:07)
[2019-08-03 08:09] LABS: INR 1.01 (0.9-1.15); Partial Thromboplastin Time 37.2 sec (23.64-32.05)
[2019-08-03 08:10] LABS: Basophils # (auto) 0 uL; Basophils % (auto) 0.6 % (0.0-2.0); Eosinophils # (auto) 0.1 uL; Eosinophils % (auto) 2.9 % (0.0-7.0); Hematocrit 36.7 % (41.0-53.0); Hemoglobin 12.4 g/dL (13.5-17.5); Lymphocytes # (auto) 1.5 uL; Lymphocytes % (auto) 48.7 % (10.0-50.0); Mean Corpuscular Hemoglobin 32.7 pg (28.0-32.0); Mean Corpuscular Hgb Conc. 33.8 g/dL (32.0-36.0); Mean Corpuscular Volume 96.8 fL (80.0-100.0); Monocytes # (auto) 0.3 uL; Monocytes % (auto) 9.4 % (0.0-12.0); Neutrophils # (auto) 1.2 uL; Neutrophils % (auto) 38.4 % (37.0-80.0); Nucleated Red Blood Cells % 0.3 %; Platelet Count (auto) 119 10^3/uL (140-450); Red Blood Cells 3.79 10^6/uL (4.5-5.90); Red Cell Distribution Width 13.9 % (11.8-14.3)
[2019-08-03 08:13] LABS: % Iron Saturation 31.7 % (20-55)
[2019-08-03 08:16] LABS: Albumin 3.4 g/dL (3.4-5.0); Anion Gap 5 (5-15); Blood Urea Nitrogen 8 mg/dL (7-18); Calcium 8.8 mg/dL (8.5-10.1); Carbon Dioxide 24 mmol/L (21-32); Chloride 111 mmol/L (98-107); Glucose 78 mg/dL (74-106); Potassium 3.6 mmol/L (3.5-5.1); Sodium 140 mmol/L (136-145)
[2019-08-03 08:27] LABS: Alanine Aminotransferase 93 U/L (16-61); Alkaline Phosphatase 116 U/L (45-117); Aspartate Aminotransferase 69 U/L (15-37); BUN/Creatinine Ratio 10.4; Bilirubin, Total 0.3 mg/dL (0.2-1.0); CRP High Sensitivity 2.95 mg/dL (< 0.3); Cholesterol 157 mg/dL (< 200); Creatine Kinase IFCC 91 U/L (39-308); GFR African American 132 mL/min; GFR Non-African American 109 mL/min; HDL Cholesterol 57 mg/dL (40-59); LDL Cholesterol 84 mg/dL (< 100); Phosphorus 2.2 mg/dL (2.5-4.90); Total Protein 7.6 g/dL (6.4-8.2); Triglycerides 134 mg/dL (< 150)
[2019-08-03] MEDS: levETIRAcetam 500 MG TAB PO SCH ×2 (09:01→21:06)
[2019-08-03] MEDS: acetaZOLAMIDE 250 MG TAB PO SCH ×2 (09:01→21:07)
[2019-08-03] MEDS: ENOXAPARIN SOD 80 MG/0.8ML SYRINGE SC SCH ×2 (09:01→21:07)
[2019-08-03 09:18] VITALS: BP 104/61
[2019-08-03 13:00] VITALS: BP 91/63
[2019-08-03 17:00] VITALS: BP 100/68
[2019-08-03 22:00] VITALS: BP 96/65
[2019-08-04] MEDS: SOD CHL 0.9%/ KCL 20MEQ 1,000 ML IV SCH ×2 (02:27→13:17)
[2019-08-04 05:00] VITALS: BP 104/61
[2019-08-04] MEDS: carBAMazepine 200 MG TAB PO SCH ×3 (05:24→22:15)
[2019-08-04] MEDS: FUROSEMIDE 20 MG/2 ML VIAL IV SCH ×2 (05:25→17:50)
[2019-08-04 07:09] LABS: RPR Non Reactive (Non Reactive)
[2019-08-04 07:24] LABS: Basophils # (auto) 0 uL; Basophils % (auto) 0.8 % (0.0-2.0); Eosinophils # (auto) 0.1 uL; Eosinophils % (auto) 3.8 % (0.0-7.0); Hematocrit 35.5 % (41.0-53.0); Hemoglobin 12.1 g/dL (13.5-17.5); Lymphocytes # (auto) 1.5 uL; Mean Corpuscular Hemoglobin 32.7 pg (28.0-32.0); Mean Corpuscular Hgb Conc. 34.1 g/dL (32.0-36.0); Monocytes # (auto) 0.3 uL; Neutrophils # (auto) 1.4 uL; Neutrophils % (auto) 41.4 % (37.0-80.0); Nucleated Red Blood Cells % 0.1 %; Platelet Count (auto) 138 10^3/uL (140-450); Red Cell Distribution Width 13.7 % (11.8-14.3); White Blood Cell 3.5 10^3/uL (4.4-10.8)
[2019-08-04 07:46] LABS: BUN/Creatinine Ratio 16.9; Calcium 8.4 mg/dL (8.5-10.1); Potassium 3.6 mmol/L (3.5-5.1)
[2019-08-04 09:00] VITALS: BP 94/57
[2019-08-04] MEDS: acetaZOLAMIDE 250 MG TAB PO SCH ×2 (09:16→22:14)
[2019-08-04] MEDS: ENOXAPARIN SOD 80 MG/0.8ML SYRINGE SC SCH ×2 (09:16→22:15)
[2019-08-04] MEDS: levETIRAcetam 500 MG TAB PO SCH ×2 (09:17→22:15)
[2019-08-04 13:00] VITALS: BP 93/60
[2019-08-04 17:00] VITALS: BP 86/58
[2019-08-04 21:09] VITALS: BP 111/69
[2019-08-04] MEDS ORDERED: ACETAMINOPHEN 325 MG TAB PO PRN (22:30)
[2019-08-05] MEDS: SOD CHL 0.9%/ KCL 20MEQ 1,000 ML IV SCH ×3 (01:06→20:29)
[2019-08-05 05:27] VITALS: BP 111/45
[2019-08-05] MEDS: carBAMazepine 200 MG TAB PO SCH ×3 (05:28→22:44)
[2019-08-05] MEDS: FUROSEMIDE 20 MG/2 ML VIAL IV SCH ×2 (05:28→18:43)
[2019-08-05 06:23] LABS: Basophils # (auto) 0 uL; Basophils % (auto) 0.7 % (0.0-2.0); Eosinophils # (auto) 0.2 uL; Eosinophils % (auto) 4.2 % (0.0-7.0); Hematocrit 31.5 % (41.0-53.0); Hemoglobin 10.7 g/dL (13.5-17.5); Lymphocytes # (auto) 1.6 uL; Lymphocytes % (auto) 45.3 % (10.0-50.0); Mean Corpuscular Hgb Conc. 33.8 g/dL (32.0-36.0); Mean Corpuscular Volume 97.5 fL (80.0-100.0); Monocytes # (auto) 0.4 uL; Monocytes % (auto) 10.9 % (0.0-12.0); Neutrophils # (auto) 1.4 uL; Neutrophils % (auto) 38.9 % (37.0-80.0); Nucleated Red Blood Cells % 0.2 %; Platelet Count (auto) 143 10^3/uL (140-450); Red Blood Cells 3.23 10^6/uL (4.5-5.90); Red Cell Distribution Width 13.5 % (11.8-14.3); White Blood Cell 3.6 10^3/uL (4.4-10.8)
[2019-08-05 06:25] LABS: BUN/Creatinine Ratio 21.4; Calcium 8.1 mg/dL (8.5-10.1); Potassium 3.8 mmol/L (3.5-5.1)
[2019-08-05 09:00] VITALS: BP 114/78
[2019-08-05 09:55] LABS: Prolactin 4.03 ng/mL (2.8-29.2)
[2019-08-05 09:56] LABS: Ferritin 196.5 ng/mL (10-322)
[2019-08-05 09:57] LABS: Folate (Folic Acid) 6.54 ng/mL (5.38-24)
[2019-08-05] MEDS: ENOXAPARIN SOD 80 MG/0.8ML SYRINGE SC SCH ×2 (10:13→22:44)
[2019-08-05] MEDS: levETIRAcetam 500 MG TAB PO SCH ×2 (10:13→22:44)
[2019-08-05] MEDS: acetaZOLAMIDE 250 MG TAB PO SCH ×2 (10:13→22:44)
[2019-08-05 13:00] VITALS: BP 99/64
[2019-08-05 13:23] LABS: INR 1.04 (0.9-1.15); Partial Thromboplastin Time 35.8 sec (23.64-32.05)
[2019-08-05] MEDS ORDERED: WARFARIN SODIUM 10 MG TAB PO ONE (17:00)
[2019-08-05 17:26] VITALS: BP 118/69
[2019-08-05 22:00] VITALS: BP 101/61
[2019-08-06 05:00] VITALS: BP 104/64
[2019-08-06 06:02] LABS: Basophils # (auto) 0 uL; Basophils % (auto) 0.9 % (0.0-2.0); Eosinophils # (auto) 0.2 uL; Eosinophils % (auto) 5.6 % (0.0-7.0); Hematocrit 32.8 % (41.0-53.0); Hemoglobin 11.1 g/dL (13.5-17.5); Lymphocytes # (auto) 1.5 uL; Lymphocytes % (auto) 44.9 % (10.0-50.0); Mean Corpuscular Hemoglobin 33.2 pg (28.0-32.0); Mean Corpuscular Volume 97.5 fL (80.0-100.0); Monocytes # (auto) 0.4 uL; Neutrophils # (auto) 1.3 uL; Neutrophils % (auto) 36.6 % (37.0-80.0); Nucleated Red Blood Cells % 0.1 %; Platelet Count (auto) 159 10^3/uL (140-450); Red Blood Cells 3.36 10^6/uL (4.5-5.90); White Blood Cell 3.4 10^3/uL (4.4-10.8)
[2019-08-06 06:20] LABS: INR 1.14 (0.9-1.15)
[2019-08-06] MEDS: FUROSEMIDE 20 MG/2 ML VIAL IV SCH ×2 (06:22→18:00)
[2019-08-06] MEDS: carBAMazepine 200 MG TAB PO SCH ×2 (06:22→14:53)
[2019-08-06 06:32] LABS: Potassium 3.6 mmol/L (3.5-5.1)
[2019-08-06 06:41] LABS: BUN/Creatinine Ratio 16.9; Calcium 8.1 mg/dL (8.5-10.1)
[2019-08-06] MEDS: acetaZOLAMIDE 250 MG TAB PO SCH (08:53)
[2019-08-06] MEDS: levETIRAcetam 500 MG TAB PO SCH (08:53)
[2019-08-06] MEDS: ENOXAPARIN SOD 80 MG/0.8ML SYRINGE SC SCH (08:53)
[2019-08-06 09:11] VITALS: BP 106/61
[2019-08-06] MEDS: SOD CHL 0.9%/ KCL 20MEQ 1,000 ML IV SCH (11:30)
[2019-08-06 12:38] VITALS: BP 106/64
[2019-08-06 16:07] VITALS: BP 110/62
[2019-08-06] MEDS ORDERED: WARFARIN SODIUM 2.5 MG TAB PO ONE (17:00)
== END 2019-08-06 18:38 | disposition short-term general hospital (02) | DRG 100 ==
LOC: ER 13:08 → EDUNIT# 13:08 → TELE 13:09 → TELE-WESTW 20:26
PROVIDERS: ADMIT Nurse Practitioner Acute Care; ATTEND Internal Medicine
DX: G40.209 Localization-related (focal) (partial) symptomatic epilepsy and epileptic syndromes with complex partial seizures, not intractable, without status epilepticus (principal); N17.0 Acute kidney failure with tubular necrosis; C71.9 Malignant neoplasm of brain, unspecified; G91.9 Hydrocephalus, unspecified; D61.818 Other pancytopenia; G81.90 Hemiplegia, unspecified affecting unspecified side; I82.401 Acute embolism and thrombosis of unspecified deep veins of right lower extremity; D15.1 Benign neoplasm of heart; R55 Syncope and collapse; Z85.841 Personal history of malignant neoplasm of brain; M81.0 Age-related osteoporosis without current pathological fracture; E87.6 Hypokalemia; F02.80 Dementia in other diseases classified elsewhere, unspecified severity, without behavioral disturbance, psychotic disturbance, mood disturbance, and anxiety; G30.9 Alzheimer's disease, unspecified; D63.8 Anemia in other chronic diseases classified elsewhere; N18.9 Chronic kidney disease, unspecified; D53.9 Nutritional anemia, unspecified; Z96.641 Presence of right artificial hip joint; I95.9 Hypotension, unspecified; D21.9 Benign neoplasm of connective and other soft tissue, unspecified; E83.51 Hypocalcemia; Z79.01 Long term (current) use of anticoagulants; Z98.2 Presence of cerebrospinal fluid drainage device; Z86.718 Personal history of other venous thrombosis and embolism; Z79.899 Other long term (current) drug therapy; Z87.820 Personal history of traumatic brain injury; Z87.891 Personal history of nicotine dependence; Z23 Encounter for immunization
CPT/HCPCS: 36415; 70450; 71045; 71275; 80048; 80053; 80061; 80156; 80307; 80320; 81001; 82550; 82607; 82728; 82746; 83540; 83550; 83735; 83880; 84100; 84146; 84443; 84484; 85025; 85045; 85379; 85610; 85652; 85730; 86141; 86592; 93005; 93306; 93886; 93970; 95819; 96360; G0378; J7060

== ENCOUNTER 2020-08-26 11:15 | Inpatient (IN) | payer MEDICARE, MEDICAID ==
[~2020-08-26] VITALS: Ht 170.2 cm; Wt 92.0 kg
[~2020-08-26 11:15] MED LIST changes: -LEVE500T22 PO; +LEVE500T32 PO
[2020-08-26] MEDS ORDERED: ACCU-CHEK COMFORT CURVE STRIP VI ONE (11:30)
[2020-08-26 12:10] LABS: Hematocrit 41.7 % (41.0-53.0); Hemoglobin 13.3 g/dL (13.5-17.5); Mean Corpuscular Hemoglobin 32.3 pg (28.0-32.0); Mean Corpuscular Hgb Conc. 31.8 g/dL (32.0-36.0); Mean Corpuscular Volume 101.5 fL (80.0-100.0); Red Blood Cells 4.11 10^6/uL (4.5-5.90); Red Cell Distribution Width 14.1 % (11.8-14.3)
[2020-08-26 12:27] LABS: Basophils % (manual) 0 (0.0-2.0); Blast Cells 0; Metamyelocytes % 0; Myelocytes % 0; Promyelocytes % 0; Reactive Lymphocytes 0
[2020-08-26 12:31] LABS: INR 1.29 (0.9-1.15); Partial Thromboplastin Time 32.3 sec (23.0-31.2)
[2020-08-26 12:41] LABS: Potassium 3.9 mmol/L (3.5-5.1)
[2020-08-26 12:42] LABS: BUN/Creatinine Ratio 15.2; Band Neutrophils % (manual) 7; Calcium 8.5 mg/dL (8.5-10.1); Eosinophils % (manual) 56 (0-7); Lymphocytes % (manual) 2 (10.0-50.0); Monocytes % (manual) 2 (0-12)
[2020-08-26 12:43] LABS: Albumin 2.5 g/dL (3.4-5.0); Bilirubin, Total 0.6 mg/dL (0.2-1.0); Total Protein 7.9 g/dL (6.4-8.2)
[2020-08-26 13:00] LABS: Urine Amorphous Crystal FEW /hpf (None Seen); Urine Bacteria NONE SEEN /hpf (None Seen); Urine Blood TRACE /uL (Negative); Urine Mucus FEW (None Seen); Urine WBC 3 /hpf (0 - 3)
[2020-08-26] MEDS ORDERED: VANCOMYCIN PER PHARMACY 0 MG IV SCH (15:15)
[2020-08-26] MEDS ORDERED: SODIUM CHLORIDE 0.9% 500 ML IV ONE (15:15)
[2020-08-26] MEDS ORDERED: MORPHINE SULFATE INJECTION 2 MG/ML SYRG IV PRN (15:15)
[2020-08-26] MEDS ORDERED: NITROGLYCERIN 0.4 MG SL TAB SL PRN (15:15)
[2020-08-26] MEDS ORDERED: cefTRIAXone 1GM/50ML D5W 50 ML IV SCH (15:20)
[2020-08-26] MEDS: D5W/SOD CHL 0.45% 1,000 ML IV SCH ×2 (15:44→23:24)
[2020-08-26] MEDS: VANCOMYCIN 1GM/250ML 250 ML IV SCH (17:12)
[2020-08-26 20:34] VITALS: BP 120/81
[2020-08-26 22:00] VITALS: BP 120/81
[2020-08-26] MEDS ORDERED: levETIRAcetam 500 MG TAB PO SCH (22:00)
[2020-08-26] MEDS: carBAMazepine 200 MG/10 ML Ud ORAL Susp PO SCH ×2 (22:00→22:11)
[2020-08-26] MEDS ORDERED: carBAMazepine 200 MG TAB PO SCH (22:00)
[2020-08-26] MEDS: metroNIDAZOLE 500MG/100ML 100 ML IV SCH (22:11)
[2020-08-27] MEDS ORDERED: LEVE500T32 PO ×2 (00:19→00:21)
[2020-08-27] MEDS ORDERED: CARB200T4 PO (00:19)
[2020-08-27] MEDS ORDERED: MID10T PO (00:19)
[2020-08-27] MEDS ORDERED: APIX5TAB PO (00:19)
[2020-08-27] MEDS ORDERED: ACET250T3 PO (00:19)
[2020-08-27] MEDS ORDERED: ENOXAPARIN SOD 40 MG/0.4 ML SYRINGE SC ONE (00:30)
[2020-08-27] MEDS: ACETAMINOPHEN 650 MG RECT SUPP PR PRN ×3 (04:51→21:39)
[2020-08-27 05:00] VITALS: BP 137/72
[2020-08-27] MEDS: VANCOMYCIN 1GM/250ML 250 ML IV SCH ×2 (05:18→17:45)
[2020-08-27] MEDS: metroNIDAZOLE 500MG/100ML 100 ML IV SCH ×2 (05:19→15:28)
[2020-08-27] MEDS: carBAMazepine 200 MG/10 ML Ud ORAL Susp PO SCH ×3 (05:19→21:40)
[2020-08-27 05:52] LABS: Potassium 3.6 mmol/L (3.5-5.1)
[2020-08-27 06:05] LABS: Albumin 2.3 g/dL (3.4-5.0); Bilirubin, Total 0.6 mg/dL (0.2-1.0); Calcium 8.2 mg/dL (8.5-10.1); Total Protein 7.2 g/dL (6.4-8.2)
[2020-08-27 06:11] LABS: Hematocrit 39.6 % (41.0-53.0); Mean Corpuscular Hemoglobin 31.8 pg (28.0-32.0); Mean Corpuscular Hgb Conc. 32.9 g/dL (32.0-36.0); Mean Corpuscular Volume 96.5 fL (80.0-100.0); Red Cell Distribution Width 13.5 % (11.8-14.3)
[2020-08-27 06:17] LABS: White Blood Cell 62.8 10^3/uL (4.4-10.8)
[2020-08-27 06:19] LABS: Basophils % (manual) 0 (0.0-2.0); Blast Cells 0; Myelocytes % 0; Promyelocytes % 0
[2020-08-27 07:26] LABS: Band Neutrophils % (manual) 13; Eosinophils % (manual) 44 (0-7); Lymphocytes % (manual) 7 (10.0-50.0); Metamyelocytes % 2; Monocytes % (manual) 4 (0-12); Reactive Lymphocytes 1
[2020-08-27 08:15] VITALS: BP 112/64
[2020-08-27 09:00] VITALS: BP 112/64
[2020-08-27] MEDS ORDERED: cefTRIAXone 1GM/50ML D5W 50 ML IV SCH (09:00)
[2020-08-27] MEDS: D5W/SOD CHL 0.45% 1,000 ML IV SCH (09:15)
[2020-08-27 09:46] LABS: Hemoglobin 11.9 g/dL (13.5-17.5)
[2020-08-27 09:50] LABS: Hematocrit 36.5 % (41.0-53.0); Mean Corpuscular Hemoglobin 31.5 pg (28.0-32.0); Mean Corpuscular Hgb Conc. 32.6 g/dL (32.0-36.0); Mean Corpuscular Volume 96.6 fL (80.0-100.0); Red Blood Cells 3.78 10^6/uL (4.5-5.90)
[2020-08-27] MEDS: acetaZOLAMIDE 250 MG TAB PO SCH (10:00)
[2020-08-27 10:10] LABS: Albumin 2.2 g/dL (3.4-5.0); Basophils % (manual) 0 (0.0-2.0); Calcium 7.9 mg/dL (8.5-10.1); Metamyelocytes % 0; Myelocytes % 0; Potassium 3.5 mmol/L (3.5-5.1); Promyelocytes % 0; Reactive Lymphocytes 0
[2020-08-27 10:13] LABS: BUN/Creatinine Ratio 14.6; Bilirubin, Total 0.7 mg/dL (0.2-1.0); Total Protein 6.6 g/dL (6.4-8.2)
[2020-08-27] MEDS: PIPERACILLIN-TAZOB 3.375GM 100 ML IV SCH ×2 (10:39→18:19)
[2020-08-27] MEDS: PANTOPRAZOLE 40 MG/10 ML VIAL INJ IV SCH (10:39)
[2020-08-27] MEDS: ENOXAPARIN SOD 40 MG/0.4 ML SYRINGE SC SCH ×2 (10:40→21:47)
[2020-08-27 11:09] LABS: Band Neutrophils % (manual) 8; Lymphocytes % (manual) 4 (10.0-50.0)
[2020-08-27 11:10] LABS: Blast Cells 1; Eosinophils % (manual) 42 (0-7); Monocytes % (manual) 1 (0-12)
[2020-08-27] MEDS ORDERED: POTASSIUM CHL 20MEQ/100ML 100 ML IV ONE (12:15)
[2020-08-27] MEDS ORDERED: SODIUM BICARBONATE 50ML VIAL 150 ML in D5W 5% 1,000 ML IV ONE (12:15)
[2020-08-27 12:30] VITALS: BP 131/68
[2020-08-27 17:00] VITALS: BP 120/58
[2020-08-27 22:00] VITALS: BP 124/80
[2020-08-27] MEDS: HEPARIN SODIUM (PORCINE) 5000 UNITS/ML 1ML VIAL SC SCH (22:00)
[2020-08-28] VITALS (17 sets, daily range): BP systolic 78–112; BP diastolic 41–75
[2020-08-28] MEDS: carBAMazepine 200 MG/10 ML Ud ORAL Susp PO SCH ×3 (01:15→22:00)
[2020-08-28] MEDS: PIPERACILLIN-TAZOB 3.375GM 100 ML IV SCH ×3 (01:27→18:00)
[2020-08-28] MEDS: VANCOMYCIN 1GM/250ML 250 ML IV SCH (05:00)
[2020-08-28] MEDS: HEPARIN SODIUM (PORCINE) 5000 UNITS/ML 1ML VIAL SC SCH (09:38)
[2020-08-28] MEDS: PANTOPRAZOLE 40 MG/10 ML VIAL INJ IV SCH (10:00)
[2020-08-28] MEDS: acetaZOLAMIDE 250 MG TAB PO SCH (10:00)
[2020-08-28 10:21] LABS: Hematocrit 36.8 % (41.0-53.0)
[2020-08-28 10:26] LABS: Hemoglobin 12.3 g/dL (13.5-17.5); Mean Corpuscular Hemoglobin 31.9 pg (28.0-32.0); Mean Corpuscular Hgb Conc. 33.4 g/dL (32.0-36.0); Mean Corpuscular Volume 95.7 fL (80.0-100.0); Red Blood Cells 3.85 10^6/uL (4.5-5.90); Red Cell Distribution Width 13.1 % (11.8-14.3)
[2020-08-28 10:35] LABS: Calcium 7.9 mg/dL (8.5-10.1)
[2020-08-28 10:36] LABS: INR 1.57 (0.9-1.15)
[2020-08-28 10:37] LABS: White Blood Cell 64.1 10^3/uL (4.4-10.8)
[2020-08-28 10:39] LABS: Basophils % (manual) 0 (0.0-2.0); Blast Cells 0; Myelocytes % 0; Promyelocytes % 0; Reactive Lymphocytes 0
[2020-08-28 10:42] LABS: BUN/Creatinine Ratio 10.6
[2020-08-28] MEDS ORDERED: TPN PER PHARMACY 0 ML IV SCH (11:30)
[2020-08-28 11:36] LABS: Band Neutrophils % (manual) 15; Eosinophils % (manual) 36 (0-7); Lymphocytes % (manual) 6 (10.0-50.0); Metamyelocytes % 3; Monocytes % (manual) 8 (0-12)
[2020-08-28 12:42] LABS: Bilirubin, Direct 0.6 mg/dL (0-0.2); Magnesium 1.5 mg/dL (1.6-2.6)
[2020-08-28 12:47] LABS: Bilirubin, Total 1.1 mg/dL (0.2-1.0); Phosphorus 2.2 mg/dL (2.5-4.90); Pre Albumin 4.5 mg/dL (20.0-40.0); Total Protein 6.4 g/dL (6.4-8.2)
[2020-08-28] MEDS: POTASSIUM CHL 20MEQ/100ML 100 ML IV SCH ×2 (13:00→15:30)
[2020-08-28] MEDS: MAGNESIUM SULFATE 1GM/100ML 100 ML IV SCH ×2 (13:30→14:45)
[2020-08-28] MEDS: DOXYCYCLINE 100MG/250ML 250 ML IV SCH (15:30)
[2020-08-28] MEDS ORDERED: POTASSIUM PHOSP 22MEQ(15MMOLE) in NS 100 ML IV ONE (17:00)
[2020-08-28] MEDS ORDERED: PPN PER PHARMACY IV NR ×11 (20:00)
[2020-08-28] MEDS ORDERED: NOREPINEPHRINE 8 MG/250ML KIT 250 ML IV ONE (20:03)
[2020-08-28] MEDS ORDERED: ETOMIDATE (2MG/ML) 20ML VIAL IV ONE ×2 (20:59→23:15)
[2020-08-28] MEDS ORDERED: ROCURONIUM 10MG/ML 10ML VIAL IV ONE (20:59)
[2020-08-28] MEDS ORDERED: SUCCINYLCHOLINE CHLORIDE 20 MG/ML 10ML VIAL IV ONE ×2 (21:00→23:15)
[2020-08-28] MEDS: NOREPINEPHRINE 8 MG/250ML KIT 250 ML IV SCH (21:00)
[2020-08-28] MEDS ORDERED: MIDAZOLAM DRIP 50 mg/50mL 50 ML IV ONE (21:38)
[2020-08-28] MEDS ORDERED: PROPOFOL 0 ML IV ONE (21:39)
[2020-08-28] MEDS: MIDAZOLAM DRIP 50 mg/50mL 50 ML IV SCH (21:50)
[2020-08-28] MEDS: ACETAMINOPHEN 650 MG RECT SUPP PR PRN (23:10)
[2020-08-28] MEDS: PROPOFOL 100 ML IV SCH (23:15)
[2020-08-29] VITALS (103 sets, daily range): BP systolic 46–159; BP diastolic 22–108
[2020-08-29] MEDS ORDERED: DEXTROSE (50%) 50ML SYRG IV SCH
[2020-08-29] MEDS: ACCU-CHEK COMFORT CURVE STRIP VI SCH ×4 (00:51→18:00)
[2020-08-29] MEDS: InsuLIN REG 1unit/0.01ml Soln (100units/ml) SC SCH ×4 (00:52→18:00)
[2020-08-29] MEDS: ENOXAPARIN SOD 80 MG/0.8ML SYRINGE SC SCH ×3 (00:58→20:43)
[2020-08-29] MEDS: PIPERACILLIN-TAZOB 3.375GM 100 ML IV SCH ×3 (02:15→18:00)
[2020-08-29] MEDS: MIDAZOLAM DRIP 50 mg/50mL 50 ML IV SCH ×3 (02:16→19:30)
[2020-08-29] MEDS: NOREPINEPHRINE 8 MG/250ML KIT 250 ML IV SCH ×3 (02:17→20:44)
[2020-08-29] MEDS: DOXYCYCLINE 100MG/250ML 250 ML IV SCH ×2 (05:30→14:42)
[2020-08-29] MEDS: carBAMazepine 200 MG/10 ML Ud ORAL Susp PO SCH ×3 (06:00→20:42)
[2020-08-29 08:06] LABS: Immunoglobulin G, Serum 1146 mg/dL (603-1613)
[2020-08-29] MEDS: fentaNYL Drip 2500mCg/250mlNS 250 ML IV SCH ×2 (09:00→20:25)
[2020-08-29 09:07] LABS: Albumin 1.8 g/dL (3.4-5.0); Calcium 7.5 mg/dL (8.5-10.1); Magnesium 2.4 mg/dL (1.6-2.6); Potassium 3.4 mmol/L (3.5-5.1)
[2020-08-29 09:10] LABS: BUN/Creatinine Ratio 10.2; Bilirubin, Total 0.7 mg/dL (0.2-1.0); Total Protein 6.1 g/dL (6.4-8.2)
[2020-08-29] MEDS: VASOPRESSIN 50 UNITS in D5W 5% 247.5 ML IV SCH ×2 (09:15→21:35)
[2020-08-29] MEDS: hydroxyUREA 500 MG CAP PO SCH (10:00)
[2020-08-29] MEDS: PANTOPRAZOLE 40 MG/10 ML VIAL INJ IV SCH (10:00)
[2020-08-29] MEDS: CLOPIDOGREL BISULFATE 75 MG TAB PO SCH (10:00)
[2020-08-29] MEDS: POTASSIUM CHL 20MEQ/100ML 100 ML IV SCH ×3 (10:30→23:15)
[2020-08-29] MEDS: acetaZOLAMIDE 250 MG TAB PO SCH (11:37)
[2020-08-29] MEDS ORDERED: EPINEPHrine HCL 250 ML IV SCH (11:45)
[2020-08-29 12:02] LABS: INR 1.89 (0.9-1.15); Partial Thromboplastin Time 45.4 sec (23.0-31.2)
[2020-08-29] MEDS: HYDROCORTISONE SOD SUCC 100 MG/2ML INJ VIAL IV SCH ×2 (12:52→18:00)
[2020-08-29] MEDS ORDERED: LIDOCAINE 1% (LOCAL ANESTH.) PF 5ml SDV ID ONE (16:45)
[2020-08-29] MEDS ORDERED: PPN PER PHARMACY IV NR ×11 (20:00)
[2020-08-29] MEDS ORDERED: SODIUM CHLOR 0.9% PF (SALINE LOCK) 10ML VIAL/SYR IV SCH (22:00)
[2020-08-29] MEDS ORDERED: EPINEPHrine HCL 250 ML IV ONE (23:06)
[2020-08-29] MEDS ORDERED: POTASSIUM CHL 20MEQ/100ML 200 ML IV ONE (23:11)
[2020-08-29] MEDS: EPINEPHrine HCL 250 ML IV SCH (23:15)
[2020-08-29] MEDS: PROPOFOL 100 ML IV SCH (23:15)
[2020-08-29] MEDS ORDERED: PHENYLEPHRINE IV 250 ML IV ONE (23:41)
[2020-08-29] MEDS: PHENYLEPHRINE IV 250 ML IV SCH (23:45)
[2020-08-30] VITALS (47 sets, daily range): BP systolic 58–129; BP diastolic 33–83
[2020-08-30] MEDS: PHENYLEPHRINE IV 250 ML IV SCH ×2 (01:37→05:37)
[2020-08-30] MEDS: POTASSIUM CHL 20MEQ/100ML 100 ML IV SCH (01:37)
[2020-08-30] MEDS: NOREPINEPHRINE 8 MG/250ML KIT 250 ML IV SCH ×2 (01:38→06:01)
[2020-08-30] MEDS: HYDROCORTISONE SOD SUCC 100 MG/2ML INJ VIAL IV SCH ×2 (02:09→05:55)
[2020-08-30] MEDS: ACCU-CHEK COMFORT CURVE STRIP VI SCH ×2 (02:11→06:28)
[2020-08-30] MEDS: InsuLIN REG 1unit/0.01ml Soln (100units/ml) SC SCH ×2 (02:11→06:28)
[2020-08-30] MEDS: PIPERACILLIN-TAZOB 3.375GM 100 ML IV SCH ×2 (02:11→09:42)
[2020-08-30] MEDS: VASOPRESSIN 50 UNITS in D5W 5% 247.5 ML IV SCH (03:30)
[2020-08-30 05:31] LABS: Hematocrit 33.3 % (41.0-53.0); Hemoglobin 10.1 g/dL (13.5-17.5); Mean Corpuscular Hemoglobin 31.8 pg (28.0-32.0); Mean Corpuscular Hgb Conc. 30.4 g/dL (32.0-36.0); Mean Corpuscular Volume 104.5 fL (80.0-100.0); Red Blood Cells 3.19 10^6/uL (4.5-5.90); Red Cell Distribution Width 14.5 % (11.8-14.3)
[2020-08-30] MEDS: DOXYCYCLINE 100MG/250ML 250 ML IV SCH (05:37)
[2020-08-30] MEDS: EPINEPHrine HCL 250 ML IV SCH (05:38)
[2020-08-30 06:04] LABS: White Blood Cell 64.8 10^3/uL (4.4-10.8)
[2020-08-30 06:10] LABS: Basophils % (manual) 0 (0.0-2.0); Blast Cells 0; Promyelocytes % 0; Reactive Lymphocytes 0
[2020-08-30] MEDS: carBAMazepine 200 MG/10 ML Ud ORAL Susp PO SCH (06:28)
[2020-08-30 07:35] LABS: Band Neutrophils % (manual) 27; Eosinophils % (manual) 3 (0-7); Lymphocytes % (manual) 4 (10.0-50.0); Metamyelocytes % 1; Monocytes % (manual) 6 (0-12); Myelocytes % 2
[2020-08-30 08:03] LABS: Albumin 1.3 g/dL (3.4-5.0); BUN/Creatinine Ratio 12.3; Magnesium 1.8 mg/dL (1.6-2.6); Potassium 5.2 mmol/L (3.5-5.1)
[2020-08-30 08:06] LABS: Bilirubin, Total 0.7 mg/dL (0.2-1.0); Phosphorus 4.4 mg/dL (2.5-4.90); Total Protein 4.8 g/dL (6.4-8.2)
[2020-08-30] MEDS ORDERED: SODIUM BICARBONATE 8.4 % INJ 50ML VIAL IV ONE (08:15)
[2020-08-30] MEDS ORDERED: CALCIUM GLUC 4.65meq/50ml D5AE 50 ML IV ONE ×2 (08:45)
[2020-08-30] MEDS ORDERED: CALCIUM GLUC IV ONE (09:00)
[2020-08-30] MEDS ORDERED: D5W 5% IV ONE (09:00)
[2020-08-30] MEDS: PANTOPRAZOLE 40 MG/10 ML VIAL INJ IV SCH (09:41)
[2020-08-30] MEDS: CLOPIDOGREL BISULFATE 75 MG TAB PO SCH (09:42)
[2020-08-30] MEDS: acetaZOLAMIDE 250 MG TAB PO SCH (09:42)
[2020-08-30] MEDS: hydroxyUREA 500 MG CAP PO SCH (09:42)
[2020-08-30] MEDS: ENOXAPARIN SOD 80 MG/0.8ML SYRINGE SC SCH (09:43)
[2020-08-30] MEDS ORDERED: AMINO ACID INFUSION IN D10W 1,000 ML IV NR (10:45)
[2020-08-30] MEDS ORDERED: MORPHINE SULFATE INJECTION 2 MG/ML SYRG IV PRN (12:00)
[2020-08-30] MEDS ORDERED: LORazepam 2MG/ML-1ML VIAL IV PRN (12:00)
[2020-08-30] MEDS ORDERED: EPINEPHrine HCL 1 MG/10 ML SYRG IV ONE (16:50)
[2020-08-30] MEDS ORDERED: SODIUM BICARBONATE 8.4% INJ 50ML SYRINGE IV ONE (16:50)
[2020-08-30] MEDS ORDERED: AMIODARONE HCL (50 MG/ ML) 3 ML VIAL IV ONE (16:50)
[2020-08-30] MEDS ORDERED: ADENOSINE 6 MG/2 ML INJ IV ONE (16:50)
== END 2020-08-30 11:40 | DRG 871 ==
LOC: EDBD 11:15 → ER 11:15 → TELE 11:16 → TELE-WESTW 20:29 → DOU IN ICU 08-28 19:49
PROVIDERS: ADMIT Nurse Practitioner Acute Care; ATTEND Internal Medicine Nephrology
PROC: B548ZZA Ultrasonography of Superior Vena Cava, Guidance (ICD-10-PCS; 2020-08-28)
PROC: 02H633Z Insertion of Infusion Device into Right Atrium, Percutaneous Approach (ICD-10-PCS; 2020-08-28)
PROC: 5A1935Z Respiratory Ventilation, Less than 24 Consecutive Hours (ICD-10-PCS; principal; 2020-08-29)
PROC: 0BH17EZ Insertion of Endotracheal Airway into Trachea, Via Natural or Artificial Opening (ICD-10-PCS; 2020-08-29)
PROC: 5A12012 Performance of Cardiac Output, Single, Manual (ICD-10-PCS; 2020-08-29)
PROC: 05HB33Z Insertion of Infusion Device into Right Basilic Vein, Percutaneous Approach (ICD-10-PCS; 2020-08-29)
PROC: B54MZZA Ultrasonography of Right Upper Extremity Veins, Guidance (ICD-10-PCS; 2020-08-29)
DX: A41.9 Sepsis, unspecified organism (principal); J96.01 Acute respiratory failure with hypoxia; I21.4 Non-ST elevation (NSTEMI) myocardial infarction; G93.41 Metabolic encephalopathy; I50.41 Acute combined systolic (congestive) and diastolic (congestive) heart failure; R65.21 Severe sepsis with septic shock; G91.9 Hydrocephalus, unspecified; E87.4 Mixed disorder of acid-base balance; G93.1 Anoxic brain damage, not elsewhere classified; G40.209 Localization-related (focal) (partial) symptomatic epilepsy and epileptic syndromes with complex partial seizures, not intractable, without status epilepticus; I82.511 Chronic embolism and thrombosis of right femoral vein; I46.9 Cardiac arrest, cause unspecified; Z51.5 Encounter for palliative care; D72.10 Eosinophilia, unspecified; D69.6 Thrombocytopenia, unspecified; F03.90 Unspecified dementia, unspecified severity, without behavioral disturbance, psychotic disturbance, mood disturbance, and anxiety; F09 Unspecified mental disorder due to known physiological condition; D15.1 Benign neoplasm of heart; Z96.649 Presence of unspecified artificial hip joint; Z20.822 Contact with and (suspected) exposure to COVID-19; Z79.899 Other long term (current) drug therapy; Z82.49 Family history of ischemic heart disease and other diseases of the circulatory system; Z83.3 Family history of diabetes mellitus; Z85.828 Personal history of other malignant neoplasm of skin; Z85.841 Personal history of malignant neoplasm of brain; Z92.3 Personal history of irradiation; Z98.2 Presence of cerebrospinal fluid drainage device; Z79.01 Long term (current) use of anticoagulants
CPT/HCPCS: 36415; 36569; 36600; 70450; 71045; 71250; 74176; 80048; 80053; 80076; 80156; 80202; 81001; 82040; 82533; 82607; 82784; 82785; 82805; 82962; 83605; 83735; 83880; 84100; 84443; 84478; 84484; 85007; 85027; 85060; 85610; 85730; 86141; 87040; 87070; 87077; 87081; 87086; 87205; 87426; 92950; 93005; 93306; 93970; 94002; 94003; 95819; 96365; 96367; C9113; G0378; J0153; J0171; J0330; J0696; J1815; J2250; J2543; J2704; J3480; J3490; J7060; J7131